=== PATIENT | female | born 1950 | race Two or more races ===

== ENCOUNTER → 2024-09-17 | Outpatient (CLI) | payer OTHER, MEDICAID, SELFPAY ==
--- NOTE | 2024-09-17 08:00 | XR_ITS ---
Examination: Thyroid sonography complete Technique: By resolution grayscale sonographic images thyroid lobes with color flow analysis Exam date and time: September 17, 2024 0827 hrs. Comparison March 13, 2024 Indications: Thyroid sonogram March 13, 2024 right lower pole thyroid nodule 8 mm mid pole left thyroid nodule 7 mm, 12 mm lower pole nodule 10 mm Findings: Right thyroid 5.2 x 1.7 x 1.7 cm Lower pole vascular nodule 11 x 9 x 7 mm Left thyroid 5.4 x 1.6 x 1.8 cm Midpole nodule 7 x 5 x 7 mm Lower pole vascular nodule 11 x 7 x 14 mm Impression: Bilateral thyroid nodules as above, consider ultrasound-guided fine-needle aspiration of the lower pole bilateral vascular solid thyroid nodules
--- NOTE | 2024-09-17 08:30 | XR_ITS ---
Examination: Screening digital mammography, bilateral Computer aided detection 3-D breast Tomosynthesis, bilateral Date and time of exam: September 17, 2024 0845 hrs. Compared to mammograms dating to April 10, 2019 Indication: Screening Technique: Nonmagnified MLO, CC views of the breasts to been obtained, reconstructed from 3-D Tomosynthesis images. R2 computer aided detection program utilized for evaluation of suspicious masses and/or abnormal calcifications. 3-D Tomosynthesis images obtained. Findings: The breasts are heterogeneously dense, which may obscure small masses Breast architecture is nodular Stable nodules upper outer left breast No interval suspicious masses Benign calcifications Impression: BI-RADS category II: Benign Findings. Recommend 1 year follow-up mammogram. Given the nodular breast architecture, suggest baseline bilateral breast sonography follow-up
== END | disposition home or self-care (01) ==
PROVIDERS: PCP Family Medicine; Referring Provider Family Medicine; Visit Provider Family Medicine
DX: Z12.31 Encounter for screening mammogram for malignant neoplasm of breast (principal); R92.323 Mammographic fibroglandular density, bilateral breasts; R92.1 Mammographic calcification found on diagnostic imaging of breast; E04.2 Nontoxic multinodular goiter
CPT/HCPCS: 76536; 77063; 77067

== ENCOUNTER → 2024-11-12 | Outpatient (CLI) | payer OTHER, MEDICAID, SELFPAY ==
--- NOTE | 2024-11-12 | XR_ITS ---
Examination: Ultrasound-guided fine needle percutaneous aspiration thyroid nodule, left thyroid nodule. Thyroid sonography, limited Exam date and time: November 12, 1999 2530 hours INDICATIONS: Left thyroid solid nodule on thyroid sonogram September 17, 2024. Technique: A timeout was completed verifying correct patient, procedure, site, positioning and special equipment if applicable. The patient was placed in supine position for the thyroid fine needle percutaneous aspiration The patient's left neck was prepped and draped in sterile fashion. Maximum barrier sterile technique, hand hygiene, ultrasound sterile technique. 1% lidocaine was used to anesthetize the skin and subcutaneous tissues to the patient's right thyroid nodule. Multiple fine needle aspirations were performed and multiple thyroid specimens placed in preservative according to the irm protocol. Specimens appears satisfactory. The attending radiologist was present for the entire procedure. Estimated blood loss 3 cc. The patient tolerated the procedure well and there were no complications. Impression: Successful ultrasound-guided fine-needle percutaneous aspiration thyroid nodule, left thyroid nodule.
--- NOTE | 2024-11-12 08:30 | XR_ITS ---
Examination: Ultrasound-guided fine needle percutaneous aspiration thyroid nodule, right thyroid nodule. Thyroid sonography, limited Exam date and time: November 12, 2024 1123 hours INDICATIONS: Right thyroid nodule on thyroid sonogram September 17, 2024. Technique: A timeout was completed verifying correct patient, procedure, site, positioning and special equipment if applicable. The patient was placed in supine position for the thyroid fine needle percutaneous aspiration The patient's right neck neck was prepped and draped in sterile fashion. Maximum barrier sterile technique, hand hygiene, ultrasound sterile technique. 1% lidocaine was used to anesthetize the skin and subcutaneous tissues to the patient's right thyroid nodule. Multiple fine needle aspirations were performed and multiple thyroid specimens placed in preservative according to the irm protocol. Specimens appears satisfactory. The attending radiologist was present for the entire procedure. Estimated blood loss 3 cc. The patient tolerated the procedure well and there were no complications. Impression: Successful ultrasound-guided fine-needle percutaneous aspiration thyroid nodule, right thyroid nodule.
[2024-11-12 09:51] LABS: Basophils % (Auto) 1 % (0-2.5); Eosinophils # (Auto) 0.1 Thou/mm3 (0.0-0.5); Eosinophils % (Auto) 3 % (0-10); Hematocrit 42.7 % (36.0-46.0); Hemoglobin 13.5 g/dL (12.0-16.0); Immature Granulocytes % (Auto) 0 % (0-0); Immature Granulocytes Auto 0.01 Thou/mm3 (0.00-0.00); Lymphocytes # (Auto) 2.1 Thou/mm3 (1.0-4.8); Lymphocytes % (Auto) 45 % (10-50); Mean Corpuscular HGB Conc 31.6 g/dl (31.0-37.0); Mean Corpuscular Hemoglobin 25.9 pg (25.0-35.0); Mean Corpuscular Volume 82 fL (80-100); Monocytes # (Auto) 0.3 Thou/mm3 (0.0-0.8); Monocytes % (Auto) 6 % (0-12); Neutrophils # (Auto) 2.1 Thou/mm3 (1.8-7.7); Neutrophils % (Auto) 45 % (37-80); Nucleated Red Blood Cell % 0 /100 WBC (0); Platelet Count 182 Thou/mm3 (140-440); RDW Standard Deviation 47.9 fL (36.4-46.3); Red Blood Count 5.22 Miln/mm3 (4.00-5.20); White Blood Count 4.6 Thou/mm3 (3.6-11.0)
[2024-11-12 09:59] LABS: Partial Thromboplastin Time 26.4 Seconds (22.0-36.0); Prothrombin Time 10.7 Seconds (9.0-12.2)
== END | disposition home or self-care (01) ==
LOC: SDIM 09:57 → SIRX 10:35
PROVIDERS: Radiology Diagnostic Radiology; PCP Family Medicine; Referring Provider Family Medicine; Visit Provider Family Medicine
DX: E04.2 Nontoxic multinodular goiter (principal); Z01.812 Encounter for preprocedural laboratory examination
CPT/HCPCS: 10005; 36415; 85025; 85610; 85730

== ENCOUNTER → 2025-02-24 | Outpatient (CLI) | payer OTHER, MEDICAID, SELFPAY ==
--- NOTE | 2025-02-24 08:30 | XR_ITS ---
Examination: Ultrasound-guided fine needle percutaneous aspiration thyroid nodule, lower pole right thyroid nodule. Thyroid sonography, limited Exam date and time: February 24, 2025 1022 hours INDICATIONS: Thyroid sonogram September 17, 2024 lower pole vascular right thyroid nodule 11 x 9 x 7 mm. Technique: A timeout was completed verifying correct patient, procedure, site, positioning and special equipment if applicable. The patient was placed in supine position for the thyroid fine needle percutaneous aspiration The patient's right neck was prepped and draped in sterile fashion. Maximum barrier sterile technique, hand hygiene, ultrasound sterile technique. 1% lidocaine was used to anesthetize the skin and subcutaneous tissues to the patient's right thyroid nodule. Multiple fine needle aspirations were performed and multiple thyroid specimens placed in preservative according to the [facility] protocol. Specimens appears satisfactory. The attending radiologist was present for the entire procedure. Estimated blood loss 3 cc. The patient tolerated the procedure well and there were no complications. Impression: Successful ultrasound-guided fine-needle percutaneous aspiration thyroid nodule, lower pole right thyroid nodule.
[2025-02-24 09:41] LABS: Basophils % (Auto) 0 % (0-2.5); Eosinophils # (Auto) 0.1 Thou/mm3 (0.0-0.5); Eosinophils % (Auto) 3 % (0-10); Hematocrit 40.1 % (36.0-46.0); Hemoglobin 13.2 g/dL (12.0-16.0); Immature Granulocytes % (Auto) 0 % (0-0); Lymphocytes # (Auto) 1.9 Thou/mm3 (1.0-4.8); Lymphocytes % (Auto) 39 % (10-50); Mean Corpuscular HGB Conc 32.9 g/dl (31.0-37.0); Mean Corpuscular Hemoglobin 26.4 pg (25.0-35.0); Mean Corpuscular Volume 80 fL (80-100); Monocytes # (Auto) 0.3 Thou/mm3 (0.0-0.8); Monocytes % (Auto) 6 % (0-12); Neutrophils # (Auto) 2.6 Thou/mm3 (1.8-7.7); Neutrophils % (Auto) 52 % (37-80); Nucleated Red Blood Cell % 0 /100 WBC (0); Platelet Count 171 Thou/mm3 (140-440); RDW Standard Deviation 44.9 fL (36.4-46.3)
[2025-02-24 09:52] LABS: Partial Thromboplastin Time 26.6 Seconds (22.0-36.0); Prothrombin Time 10.8 Seconds (9.0-12.2)
== END | disposition home or self-care (01) ==
LOC: SIRX 02-26 10:48
PROVIDERS: Radiology Diagnostic Radiology; PCP Family Medicine; Referring Provider Family Medicine; Visit Provider Family Medicine
DX: E04.1 Nontoxic single thyroid nodule (principal); Z01.812 Encounter for preprocedural laboratory examination
CPT/HCPCS: 10005; 36415; 85025; 85610; 85730

== ENCOUNTER → 2025-05-08 | Outpatient (CLI) | payer OTHER, MEDICAID, SELFPAY ==
[2025-05-08 08:53] LABS: Alanine Aminotransferase 14 U/L (10-49); Albumin, Serum 4.6 gm/dL (3.4-4.8); Albumin/Globulin Ratio 1.6 (1.2-2.2); Alkaline Phosphatase 62 U/L (46-116); Anion Gap 10 (7-16); Aspartate Amino Transferase 21 U/L (0-34); BUN/Creatinine Ratio 22 Ratio (12-20); Bilirubin,Total 0.9 mg/dL (0.3-1.2); Blood Urea Nitrogen 13 mg/dL (9-23); Calcium 10.3 mg/dL (8.3-10.6); Calcium (Corrected) 10.3 mg/dL (8.5-10.1); Carbon Dioxide 28.1 mMol/L (20.0-31.0); Chloride 105 mMol/L (98-107); Creatinine (Component) 0.6 mg/dL (0.6-1.3); Free T4 (Free Thyroxine) 1.23 ng/dL (0.89-1.76); Globulin 2.8 gm/dL (2.3-3.5); Glucose 87 mg/dL (74-106); Osmolality,Calculated 284 (275-295); Potassium 4.0 mMol/L (3.4-5.1); Sodium 143 mMol/L (136-145); Thyroid Stimulating Hormone 1.69 uIU/mL (0.55-4.78); Total Protein 7.4 gm/dL (5.7-8.2); eGFR > 60 See Note
[2025-05-08 14:18] LABS: Cholesterol 227 mg/dL (132-200); Triglycerides 84 mg/dL (30-150)
[2025-05-08 15:00] LABS: Cardiac Risk Estimate 3.2 RATIO (3.7-5.6); HDL Cholesterol 71 mg/dL (40-60); LDL Cholesterol,Calculated 139 mg/dL (0-130)
== END | disposition home or self-care (01) ==
PROVIDERS: PCP Family Medicine; Referring Provider Family Medicine; Visit Provider Family Medicine
DX: E78.1 Pure hyperglyceridemia (principal); E03.2 Hypothyroidism due to medicaments and other exogenous substances; Z13.1 Encounter for screening for diabetes mellitus
CPT/HCPCS: 36415; 80053; 80061; 84439; 84443

== ENCOUNTER → 2025-06-04 | Outpatient (CLI) | payer OTHER, MEDICAID, SELFPAY ==
--- NOTE | 2025-06-04 07:15 | XR_ITS ---
Examination: Thyroid sonography complete TECHNIQUE: Grayscale sonographic images thyroid lobes Date and time: June 04, 2025 0729 hours, comparison March 13, 2024 INDICATIONS: 8 mm lower pole right thyroid nodule, left thyroid midpole nodule 7 mm, 12 mm, lower pole nodule 10 mm on thyroid sonogram March 13, 2024 FINDINGS: Right thyroid 4.8 cm. Lower pole nodule 10 x 9 mm Left thyroid 4.9 cm. Lower pole nodules 11 x 7 mm, 8 x 10 mm IMPRESSION: Solid thyroid nodules as above
== END | disposition home or self-care (01) ==
LOC: CDIM 07:07
PROVIDERS: PCP Family Medicine; Referring Provider Family Medicine; Visit Provider Family Medicine
DX: E04.2 Nontoxic multinodular goiter (principal)
CPT/HCPCS: 76536

== ENCOUNTER → 2025-07-22 | Outpatient (CLI) | payer OTHER, MEDICAID, SELFPAY ==
--- NOTE | 2025-07-22 | XR_ITS ---
EXAMINATION: PA lateral chest 2 views TECHNIQUE: Upright PA lateral chest 2 views Date and time: July 22, 2025, 2002 hours, comparison 08/15/2023 INDICATIONS: Coughing several months. FINDINGS: Pectus deformity accentuates the left ventricle No pneumonia or pulmonary edema Prominent osteopenia Minimal chronic osteoporotic compression mid dorsal vertebral bodies IMPRESSION: No pneumonia or pulmonary edema
[2025-07-22 09:27] LABS: Basophils # (Auto) 0.0 Thou/mm3 (0.0-0.2); Basophils % (Auto) 1 % (0-2.5); Eosinophils # (Auto) 0.1 Thou/mm3 (0.0-0.5); Eosinophils % (Auto) 3 % (0-10); Hematocrit 42.5 % (36.0-46.0); Hemoglobin 13.4 g/dL (12.0-16.0); Immature Granulocytes Auto 0.00 Thou/mm3 (0.00-0.00); Lymphocytes # (Auto) 2.6 Thou/mm3 (1.0-4.8); Lymphocytes % (Auto) 49 % (10-50); Mean Corpuscular HGB Conc 31.5 g/dl (31.0-37.0); Mean Corpuscular Hemoglobin 26.1 pg (25.0-35.0); Mean Corpuscular Volume 83 fL (80-100); Monocytes # (Auto) 0.4 Thou/mm3 (0.0-0.8); Monocytes % (Auto) 7 % (0-12); Neutrophils # (Auto) 2.1 Thou/mm3 (1.8-7.7); Neutrophils % (Auto) 40 % (37-80); Nucleated Red Blood Cell # 0.00 Thou/mm3 (0.00-0.00); Nucleated Red Blood Cell % 0 /100 WBC (0); Platelet Count 185 Thou/mm3 (140-440); RDW Standard Deviation 48.2 fL (36.4-46.3); Red Blood Count 5.13 Miln/mm3 (4.00-5.20); White Blood Count 5.2 Thou/mm3 (3.6-11.0)
[2025-07-22 09:54] LABS: Alanine Aminotransferase 13 U/L (10-49); Albumin, Serum 4.8 gm/dL (3.4-4.8); Albumin/Globulin Ratio 2.4 (1.2-2.2); Alkaline Phosphatase 64 U/L (46-116); Anion Gap 10 (7-16); Aspartate Amino Transferase 18 U/L (0-34); BUN/Creatinine Ratio 27 Ratio (12-20); Bilirubin,Total 0.8 mg/dL (0.3-1.2); Blood Urea Nitrogen 16 mg/dL (9-23); Calcium 9.6 mg/dL (8.3-10.6); Calcium (Corrected) 9.6 mg/dL (8.5-10.1); Carbon Dioxide 30.2 mMol/L (20.0-31.0); Cardiac Risk Estimate 3.8 RATIO (3.7-5.6); Chloride 105 mMol/L (98-107); Cholesterol 244 mg/dL (132-200); Creatinine (Component) 0.6 mg/dL (0.6-1.3); Free T4 (Free Thyroxine) 1.30 ng/dL (0.89-1.76); Globulin 2.0 gm/dL (2.3-3.5); Glucose 83 mg/dL (74-106); HDL Cholesterol 65 mg/dL (40-60); LDL Cholesterol,Calculated 155 mg/dL (0-130); Osmolality,Calculated 288 (275-295); Potassium 4.2 mMol/L (3.4-5.1); Sodium 145 mMol/L (136-145); Thyroid Stimulating Hormone 2.90 uIU/mL (0.55-4.78); Total Protein 6.8 gm/dL (5.7-8.2); Triglycerides 122 mg/dL (30-150); eGFR > 60 See Note
== END | disposition home or self-care (01) ==
LOC: CDIM 07:25 → COPL 08:27
PROVIDERS: PCP Family Medicine; Referring Provider Family Medicine; Visit Provider Family Medicine
DX: J40 Bronchitis, not specified as acute or chronic (principal); E78.1 Pure hyperglyceridemia; E03.2 Hypothyroidism due to medicaments and other exogenous substances; Z13.1 Encounter for screening for diabetes mellitus
CPT/HCPCS: 36415; 71046; 80053; 80061; 84439; 84443; 85025

== ENCOUNTER → 2025-08-13 | Outpatient (CLI) | payer OTHER, MEDICAID, SELFPAY ==
--- NOTE | 2025-08-13 | XR_ITS ---
Examination: Abdomen AP single view Technique: AP portable supine abdomen, single view Exam date and time: August 13, 2025, 1258 hours INDICATIONS: Constipation 7 days FINDINGS: Moderate to large amounts of stool throughout the colon No obstruction No free air IMPRESSION: Moderate to large amount of stool throughout the colon
== END | disposition home or self-care (01) ==
LOC: CDIM 11:48
PROVIDERS: PCP Family Medicine; Referring Provider Family Medicine; Visit Provider Family Medicine
DX: K59.01 Slow transit constipation (principal)
CPT/HCPCS: 74018

== ENCOUNTER 2025-08-17 05:08 | Emergency (ER) | payer OTHER, MEDICAID, SELFPAY ==
[2025-08-17 05:10] VITALS: BMI 19.3
--- NOTE | 2025-08-17 05:11 | EKG_ITS ---
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
--- NOTE | 2025-08-17 05:11 | XR_ITS ---
EXAMINATION: PA chest single view TECHNIQUE: Upright PA chest single view Date and time: August 17, 2025, 0520 hours, comparison July 22, 2025 INDICATIONS: Chest pain today. FINDINGS: Mild enlargement cardiac contour Accentuation basilar bronchovascular markings. No nancy pulmonary edema or lobar pneumonia Prominent osteopenia IMPRESSION: Bronchitis pattern
[2025-08-17] MEDS: ASPIRIN 81 MG CHEW 324 MG PO (05:38)
[2025-08-17 05:48] VITALS: BP 174/91; PULSE 62; RESP 21; TEMP 36.8; O2SAT 100
[2025-08-17 05:52] VITALS: RESP 100
[2025-08-17 05:58] LABS: Basophils # (Auto) 0.0 Thou/mm3 (0.0-0.2); Basophils % (Auto) 1 % (0-2.5); Eosinophils # (Auto) 0.1 Thou/mm3 (0.0-0.5); Eosinophils % (Auto) 2 % (0-10); Hematocrit 42.6 % (36.0-46.0); Hemoglobin 13.8 g/dL (12.0-16.0); Immature Granulocytes Auto 0.00 Thou/mm3 (0.00-0.00); Lymphocytes # (Auto) 2.8 Thou/mm3 (1.0-4.8); Lymphocytes % (Auto) 55 % (10-50); Mean Corpuscular HGB Conc 32.4 g/dl (31.0-37.0); Mean Corpuscular Hemoglobin 26.4 pg (25.0-35.0); Mean Corpuscular Volume 82 fL (80-100); Monocytes # (Auto) 0.3 Thou/mm3 (0.0-0.8); Monocytes % (Auto) 6 % (0-12); Neutrophils # (Auto) 1.9 Thou/mm3 (1.8-7.7); Neutrophils % (Auto) 37 % (37-80); Nucleated Red Blood Cell # 0.00 Thou/mm3 (0.00-0.00); Nucleated Red Blood Cell % 0 /100 WBC (0); Platelet Count 174 Thou/mm3 (140-440); RDW Standard Deviation 45.8 fL (36.4-46.3); Red Blood Count 5.23 Miln/mm3 (4.00-5.20); White Blood Count 5.1 Thou/mm3 (3.6-11.0)
[2025-08-17 06:42] LABS: Alanine Aminotransferase 36 U/L (10-49); Albumin, Serum 4.6 gm/dL (3.4-4.8); Albumin/Globulin Ratio 1.8 (1.2-2.2); Alkaline Phosphatase 63 U/L (46-116); Anion Gap 7 (7-16); Aspartate Amino Transferase 23 U/L (0-34); BUN/Creatinine Ratio 20 Ratio (12-20); Bilirubin,Total 0.9 mg/dL (0.3-1.2); Blood Urea Nitrogen 14 mg/dL (9-23); Calcium 9.7 mg/dL (8.3-10.6); Calcium (Corrected) 9.7 mg/dL (8.5-10.1); Carbon Dioxide 29.7 mMol/L (20.0-31.0); Chloride 106 mMol/L (98-107); Creatinine (Component) 0.7 mg/dL (0.6-1.3); Estimated Creatinine Clearance 46.6 mL/min (>60); Globulin 2.5 gm/dL (2.3-3.5); Glucose 94 mg/dL (74-106); LDH (Lactate Dehydrogenase) 155 U/L (120-246); Magnesium 1.9 mg/dL (1.6-2.6); Osmolality,Calculated 285 (275-295); Potassium 4.1 mMol/L (3.4-5.1); Sodium 143 mMol/L (136-145); Total Protein 7.1 gm/dL (5.7-8.2); Troponin I < 0.020 ng/mL (0.0-0.045); eGFR > 60 See Note
[2025-08-17 06:46] VITALS: BP 156/82; PULSE 58; RESP 12; TEMP 36.8; O2SAT 100
[2025-08-17 07:05] LABS: B-Type Natriuretic Peptide < 20 pg/mL (0-100)
--- NOTE | 2025-08-17 07:25 | PD.EDCHEST ---
ED Chest Pain RME/HPI General Chief Complaint: Chest Pain Stated Complaint: CHEST PAIN WITH DEEP BREATH, SOB, THROAT PAIN Time Seen by Provider: 08/17/25 05:18 Arrival date/time: 08/17/25 05:08 Mode of arrival: ambulatory Limitations: no limitations RME / HPI RME / HPI narrative: Patient is a 75-year-old female is in the emergency department with concerns for chest pain. Patient states that she has a hx of anxiety and has had intermittent episodes of chest and esophageal tightness for years and she becomes overwhlemed by her thoughts and thinks that its her heart. She spoke with her primary care doctor about mental resources however her primary care doctor has prescribed her Xanax however has not been able to connect with a therapist or a psychiatrist yet. Denies any nausea vomiting shortness of breath palpitations abdominal pain dysuria hematuria melena bloody stools drugs alcohol smoking recent travel sick contacts Related Data Home Medications ?Medication ?Instructions ?Recorded ?Confirmed alprazolam 0.25 mg tablet (Xanax) 0.25 mg PO BID PRN nerves 09/08/22 09/08/22 levothyroxine 50 mcg tablet 50 mcg PO QDAY 09/08/22 09/08/22 Previous Rx's ?Medication ?Instructions ?Recorded pantoprazole 40 mg tablet,delayed 40 mg PO QDAY #90 tabs 09/08/22 release (Protonix) Allergies Allergy/AdvReac Type Severity Reaction Status Date / Time Penicillins Allergy Unknown Verified 08/17/25 06:00 ED Exam General Limitations: Present no limitations General appearance: Present alert and in no apparent distress Head Head exam: Present atraumatic and normocephalic Eye Eye exam: Present normal appearance and PERRL ENT ENT exam: Present normal exam Neck Neck exam: Present normal inspection, full ROM and trachea midline; Absent lymphadenopathy Chest Chest inspection: Present normal inspection and symmetric chest wall rise Respiratory Respiratory exam: Present normal lung sounds bilaterally; Absent respiratory distress Cardiovascular Cardiovascular exam: Present regular rate and normal rhythm Abdominal Exam Abdominal exam: Present soft; Absent distention, tenderness or guarding Extremities Exam Extremities exam: Present normal inspection Neurological Exam Neurological exam: Present alert, oriented X3 and CN II-XII intact Psychiatric Psychiatric exam: Present normal affect Skin Skin exam: Present warm, dry and intact Course Quality Measures none Orders Category Date Time Status Brand Development Manager STAT Care 08/17/25 05:11 Active Continuous Pulse Oximetry ONCE Care 08/17/25 05:11 Completed EKG (ED ONLY) *Do not use* NOW Care 08/17/25 05:11 Completed Insert IV STAT Care 08/17/25 05:11 Active EKG (ED Only) Stat Exams 08/17/25 05:11 Draft XR chest 1V portable Stat Exams 08/17/25 05:11 Completed B-Type Natriuretic Peptide Stat Lab 08/17/25 05:45 Completed CBC Stat Lab 08/17/25 05:45 Completed Comprehensive Metabolic Panel Stat Lab 08/17/25 05:45 Completed Drug Screen,Urine Stat Lab 08/17/25 08:13 Completed LDH (Lactate Dehydrogenase) Stat Lab 08/17/25 05:45 Completed Magnesium Stat Lab 08/17/25 05:45 Completed Troponin I Stat Lab 08/17/25 05:45 Completed Troponin I Stat Lab 08/17/25 07:35 Completed Urinalysis Stat Lab 08/17/25 08:05 Completed Aspirin Chew Med 08/17/25 05:11 Discontinued 324 mg PO X1 ONE LORazepam [Ativan] Med 08/17/25 07:35 Discontinued 0.5 mg SL X1 ONE Oxygen Delivery NOW RT 08/17/25 05:11 Active Vital Signs Vital signs: Vital Signs Temperature 98.2 F 08/17/25 05:48 Pulse Rate 62 08/17/25 05:48 Respiratory Rate 21 H 08/17/25 05:48 Blood Pressure 174/91 H 08/17/25 05:48 Pulse Oximetry (%) 100 08/17/25 05:48 Oxygen Delivery Method Room Air 08/17/25 05:48 Chest Pain MDM Narrative MDM Narrative:: Patient is a 75-year-old female with medical history notable for thyroid dysfunction is in the Emergency Department concerns for chest pain. Vital signs and exam as listed. Concern for ACS arrhythmia electrolyte abnormality pneumonia viral illness among others. Ordered labs EKG chest x-ray offered medication for symptom relief. EKG performed today at 520 in the morning notable for sinus rhythm heart rate 61, normal intervals, nonspecific T wave changes, not a cardiac alert. Interpreted by Dr. Coral Olsen Labs without acute hematologic or significant metabolic abnormality, troponin not elevated, BNP not elevated. Will repeat patient's troponin. Chest x-ray without evidence of any acute cardiopulmonary abnormality. Urinalysis without evidence of infection. Troponin not elevated. On repeat evaluation patient hemodynamically stable not in distress will discharge to home with close return precautions follow-up with your primary care doctor. Advised patient to establish care with a primary care provider for further evaluation, and to continue working with her providers for further evaluation. Close return precautions. Patient data External records reviewed:: [facility] previous records Clinical information provided by:: patient Social determinants that could affect healthcare access:: none Patient has the following chronic illnesses:: see mdm How is presenting disease/condition affected by chronic disease/condition?: exacerbated by Evaluation data The following diagnostics were reviewed and interpreted by me:: lab results, radiology exam(s) and EKG tracing(s) Lab and/or radiology exams considered but not ordered:: None Interpretation Summary: See MDM Medications / Prescriptions Medications or Prescriptions considered but not ordered:: None Medication administrations:: Medication Administration History Discontinued Medications Aspirin (Aspirin 81 Mg Chew) 324 mg PO X1 ONE Stop: 08/17/25 05:12 Last Admin: 08/17/25 05:38 Dose: 324 mg Documented By: GINI Lorazepam (Lorazepam 0.5 Mg Tablet) 0.5 mg SL X1 ONE Stop: 08/17/25 07:36 Last Admin: 08/17/25 08:04 Dose: 0.5 mg Documented By: TM See above Consultations Consultation(s) initiated? (list below): No Diagnosis Chest Pain Differential Diagnosis: other Most likely diagnosis given after review of the tests above:: Chest pain Admission Indicated Admission indicated?: not indicated Admission Request Was there a request for admission?: No Disposition Plan Disposition Plan: Discharge Discharge Attestation Discharge Attestation: The patient and all family members were given an opportunity to ask questions and understood the discharge instructions. Discharge instructions specifically effects, indications for sooner follow up or return to the emergency department, and the expected course of current diagnosis. Patient condition: Stable Discharge Plan Plan Patient Disposition: HOME (Self Care) Discharge Disposition comment: Stable Prescriptions/Referrals Prescriptions/Med Rec: No Action alprazolam [Xanax] 0.25 mg Tablet 0.25 mg PO BID PRN (Reason: nerves) levothyroxine 50 mcg Tablet 50 mcg PO QDAY pantoprazole [Protonix] 40 mg Tablet,Delayed Release (Dr/Ec) 40 mg PO QDAY Qty: 90 0RF Problem List Clinical Impression: Chest pain Impression comment: Acute exacerbation of asthma Patient/Caregiver Discharge Instructions Education Materials: ED Chest Pain, Uncertain Cause Additional Instructions: Por favor discutir sam sintomas que kauffman tenido por tantos anos con [facility] medico [facility] cabecera. Es importante discutir con [facility] cardiologo para evaluacion con prueba de stress y tambien con un terapista para discutir knight [place] cronica. Regresar de inmediato si tiene empeoramiento de sintomas o sintomas de preocupacion Print Language: Faroese
--- NOTE | 2025-08-17 07:43 | PC.NURSE ---
Pt states she has discomfort when she takes a deep breath and it feels like it did when she had bronchitis. VSS on tele, family at bedside attentive to pt, call mitchell in reach, will continue w/POC
[2025-08-17 08:16] LABS: Troponin I < 0.020 ng/mL (0.0-0.045)
[2025-08-17 08:19] LABS: Collection Type, Urine Clean Catch; Squamous Epithelial Cell,Urine 0 /hpf (0-5)
[2025-08-17 08:29] LABS: Bilirubin,Urine Negative (Negative); Blood,Urine Negative (Negative); Clarity,Urine Clear (Clear/Hazy); Color,Urine Colorless (Lt Yel-Yel); Glucose, Urine Negative (Negative); Ketones,Urine Negative (Negative); Leukocyte Esterase,Urine Negative (Negative); Nitrite,Urine Negative (Negative); PH,Urine 7.0 (5.0-7.0); Protein,Urine Negative (Neg - Trace); RBC,Urine 2 /hpf (0-3); Specific Gravity,Urine 1.008 (1.001-1.035); Urobilinogen,Urine Negative mg/dL (0.0-1.0); WBC,Urine 2 /hpf (0-5)
[2025-08-17 08:37] LABS: Amphetamine/Methamp Scrn,U Negative (Negative); Barbiturate Screen,Urine Negative (Negative); Benzodiazepines Screen,Urine Negative (Negative); Benzoylecgonine Screen, Ur Negative (Negative); Fentanyl Screen,Urine Negative (Negative); Opiate Screen,Urine Negative (Negative); THC Screen,Urine Negative (Negative)
== END 2025-08-17 09:53 | disposition home or self-care (01) ==
PROVIDERS: Emergency Medicine; Emergency Provider Emergency Medicine; PCP Family Medicine
DX: J45.901 Unspecified asthma with (acute) exacerbation (principal); F41.9 Anxiety disorder, unspecified
CPT/HCPCS: 36415; 71045; 80053; 80307; 81001; 83615; 83735; 83880; 84484; 85025; 93005; 99284; A9270